=== PATIENT | female | born 1970 | race Caucasian/White ===

== ENCOUNTER 2021-09-29 07:09 | Emergency (ER) | payer OTHER ==
[2021-09-29 08:13] LABS: Absolute Neutrophil Ct (ANC) 16.01 (1.4-6.9); Basophil (Absolute #) 0.02 (0-0.4); Eosinophil % 0.1 % (0.00-5.0); Eosinophil (Absolute #) 0.01 (0-0.5); Hematocrit 46.7 % (35-47); Hemoglobin 15.6 gm/dl (12.0-16.0); Lymphocyte (Absolute #) 2.02 (1.0-4.6); Lymphocytes % 10.6 % (24.0-44.0); Mean Cell Volume 90.7 fl (78-100); Mean Corpuscular Hemoglobin 30.3 pg (26-32); Mean Corpuscular Hgb Concent. 33.4 g/dl (32-36); Monocyte (Absolute #) 1.01 (0.0-1.3); Monocytes % 5.3 % (0.0-12.0); Neutrophil % 83.9 % (36.0-66.0); Platelet Count 239 K/mm3 (150-450); Red Blood Count 5.15 M/mm3 (4.1-5.4); Red Cell Distribution Width 14.8 % (11.5-14.0); White Blood Count 19.1 K/mm3 (4.0-10.5)
--- NOTE | 2021-09-29 08:14 | ERPHSYRPT ---
- History of Present Illness Time Seen by Provider: 09/29/21 08:04 Source: patient Exam Limitations: no limitations Patient Subjective Stated Complaint: Pt c/o of upper right chest pain and feels like something is in her throat for the past month after choking on an apple, pt thinks the right chest pain is her gall bladder and she has had a US and it was clear Triage Nursing Assessment: Pt brought to the ER by her , hypertensive, rates pain as 7/10, right chest pain, throat pain, reports having lots of belching and yellow stools and thinks that it's her gall bladder, previous US was clear, throat pain she states is from an apple she choked on a month ago and feels that it is still there, pt had lots of anxiety prior to coming to room but appears to be fine now that she is in the room and is comfortable, pulses normal, skin n/w/d, tender to the right upper chest/epigastric area with palpatation, tender to palpatation to the throat Physician History: 50 years old female with history of anxiety presented with multiple nonspecific symptoms going on for months. Patient reports she is off and on epigastric and right upper quadrant pain with some loose stool at times for the last 2 to 3 months and had ultrasound done outpatient which was negative. Her symptoms are not going away and she was recommended to have HIDA scan. Patient also reports having difficulty swallowing and feeling a small lump in the throat the last 2 months off and on especially at nighttime with increased coughing and feels as if something is stuck in there. Patient reports this started after she got choked on a piece of apple. She is having night sweats and her white count stays high. No fever or chills reported. Denies any palpitations or shortness of breath. Timing/Duration: week(s), intermittent, gradual onset Severity: moderate Associated Symptoms: nausea, abdominal pain, heartburn, chest pain, No vomiting, No shortness of breath Allergies/Adverse Reactions: Sulfa (Sulfonamide Antibiotics) Allergy (Verified 09/29/21 07:48) Home Medications: Atorvastatin Calcium 20 mg PO DAILY 09/29/21 [History] Lisinopril 10 mg [Zestril 10 MG] 10 mg PO DAILY 09/29/21 [History] Travel Risk - International Travel Have you traveled outside of the country in past 3 weeks: No - Coronavirus Screening Are you exhibiting any of the following symptoms?: No Close contact with a COVID-19 positive Pt in past 14-21 Days: No - Vaccine Status Have you recieved a Covid-19 vaccination: No - Review of Systems Constitutional: Fatigue Eyes: No Symptoms Ears, Nose, & Throat: No Symptoms Respiratory: Cough Cardiac: Chest Pain Abdominal/Gastrointestinal: Abdominal Pain, Nausea, Diarrhea Genitourinary Symptoms: No Symptoms Musculoskeletal: No Symptoms Skin: No Symptoms Neurological: No Symptoms Psychological: Anxiety Endocrine: No Symptoms Hematologic/Lymphatic: No Symptoms Immunological/Allergic: No Symptoms - Past Medical History Pertinent Past Medical History: Yes Cardiac History: High Cholesterol, Hypertension - Past Surgical History Past Surgical History: Yes Female Surgical History: Hysterectomy Other Surgical History: cyst on ovary - Social History Smoking Status: Current every day smoker Exposure to second hand smoke: Yes Patient Lives Alone: No - Female History Hx Now: No - Nursing Vital Signs Nursing Vital Signs: Initial Vital Signs Temperature 97.3 F 09/29/21 07:20 Pulse Rate 103 H 09/29/21 07:20 Blood Pressure 163/94 09/29/21 07:20 O2 Sat by Pulse Oximetry 98 09/29/21 07:20 Pain Scale Pain Intensity 4 - Physical Exam General Appearance: no apparent distress, alert, anxiety Eye Exam: PERRL/EOMI, eyes nml inspection Ears, Nose, Throat Exam: moist mucous membranes, TM abnormal (R), pharyngeal erythema Neck Exam: normal inspection, supple, full range of motion, lymphadenopathy Respiratory Exam: normal breath sounds, lungs clear Cardiovascular Exam: regular rate/rhythm, normal heart sounds Gastrointestinal/Abdomen Exam: soft, normal bowel sounds, tenderness (Right upper quadrant) Back Exam: normal inspection, normal range of motion Extremity Exam: normal inspection, normal range of motion Neurologic Exam: alert, oriented x 3, cooperative, microbiology lab manager II-XII nml as tested Skin Exam: normal color SpO2 Interpretation: normal SpO2: 98 O2 Delivery: Room Air Ordered Tests: Active Orders 24 hr Category Date Time Status ABDOMEN AND PELVIS W CONTRAST [CT] Stat Exams 09/29/21 07:53 Completed CHEST WITH CONTRAST [CT] Stat Exams 09/29/21 07:57 Completed NECK WITH CONTRAST [CT] Stat Exams 09/29/21 07:44 Completed CBC W DIFF Stat Lab 09/29/21 08:00 Completed CMP Stat Lab 09/29/21 08:00 Completed CULTURE,URINE Stat Lab 09/29/21 08:32 Received LIPASE Stat Lab 09/29/21 08:00 Completed TROPONIN Q3H Lab 09/29/21 08:00 Completed TROPONIN Q3H Lab 09/29/21 11:15 Ordered TROPONIN Q3H Lab 09/29/21 14:15 Ordered TROPONIN Q3H Lab 09/29/21 17:15 Ordered TSH [TSH, 3RD Generation] Stat Lab 09/29/21 10:09 Ordered UA W/RFX UR CULTURE Stat Lab 09/29/21 08:32 Completed Medication Summary Discontinued Medications Generic Name Dose Route Start Last Admin Trade Name Freq PRN Reason Stop Dose Admin Sodium Chloride Confirm 09/29/21 08:32 Sodium Chloride 0.9% 1000 Ml Administered 09/29/21 08:33 Dose 1,000 mls @ ud .ROUTE .STK-MED ONE Sodium Chloride 1,000 mls @ 999 mls/hr 09/29/21 08:39 09/29/21 10:01 Sodium Chloride 0.9% 1000 Ml IV 09/29/21 09:39 Infused .Q1H1M STA Infusion Lab/Rad Data: Laboratory Result Diagrams 09/29/21 08:00 09/29/21 08:00 Laboratory Results 09/29/21 09/29/21 09/29/21 Range/Units 08:32 08:00 08:00 WBC (4.0-10.5) K/mm3 RBC (4.1-5.4) M/mm3 Hgb (12.0-16.0) gm/dl Hct (35-47) % MCV (78-100) fl MCH (26-32) pg MCHC (32-36) g/dl RDW (11.5-14.0) % Plt Count (150-450) K/mm3 MPV (7.5-11.0) fl Gran % (36.0-66.0) % Eos # (Auto) (0-0.5) Absolute Lymphs (auto) (1.0-4.6) Absolute Monos (auto) (0.0-1.3) Lymphocytes % (24.0-44.0) % Monocytes % (0.0-12.0) % Eosinophils % (0.00-5.0) % Basophils % (0.0-0.4) % Absolute Granulocytes (1.4-6.9) Basophils # (0-0.4) Sodium (137-145) mmol/L Potassium (3.5-5.1) mmol/L Chloride (98-107) mmol/L Carbon Dioxide (22-30) mmol/L Anion Gap (5-15) MEQ/L BUN (7-17) mg/dL Creatinine (0.52-1.04) mg/dL Estimated GFR ML/MIN Glucose (74-106) mg/dL Calcium (8.4-10.2) mg/dL Total Bilirubin (0.2-1.3) mg/dL AST (14-36) U/L ALT (0-35) U/L Alkaline Phosphatase (38-126) U/L Troponin I < 0.012 (0.000-0.034) ng/mL Serum Total Protein (6.3-8.2) g/dL Albumin (3.5-5.0) g/dL Lipase (23-300) U/L Free T4 1.30 (0.76-1.46) ng/dL Urine Color WING (YELLOW) Urine Appearance SLIGHTLY CLOUDY (CLEAR) Urine pH 6.0 (5-6) Ur Specific Rindge 1.021 (1.005-1.025) Urine Protein 100 (Negative) Urine Ketones TRACE (NEGATIVE) Urine Blood NEGATIVE (0-5) Sebastien/ul Urine Nitrite NEGATIVE (NEGATIVE) Urine Bilirubin NEGATIVE (NEGATIVE) Urine Urobilinogen 2 (0-1) mg/dL Ur Leukocyte Esterase NEGATIVE (NEGATIVE) Urine WBC (Auto) 3-5 (0-5) /HPF Urine RBC (Auto) 6-10 (0-2) /HPF U Hyaline Cast (Auto) 6-10 (0-2) /LPF U Epithel Cells (Auto) RARE (FEW) /HPF Urine Bacteria (Auto) NONE (NEGATIVE) /HPF Calcium Oxalate Crystal 6-10 (NEGATIVE) /HPF Urine Mucus (Auto) SLIGHT (NEGATIVE) /HPF Urine Culture Reflexed YES (NO) Urine Glucose NEGATIVE (NEGATIVE) mg/dL Group A Strep Antibody (NEGATIVE) 09/29/21 09/29/21 09/29/21 Range/Units 08:00 08:00 08:00 WBC 19.1 H (4.0-10.5) K/mm3 RBC 5.15 (4.1-5.4) M/mm3 Hgb 15.6 (12.0-16.0) gm/dl Hct 46.7 (35-47) % MCV 90.7 (78-100) fl MCH 30.3 (26-32) pg MCHC 33.4 (32-36) g/dl RDW 14.8 H (11.5-14.0) % Plt Count 239 (150-450) K/mm3 MPV 11.0 (7.5-11.0) fl Gran % 83.9 H (36.0-66.0) % Eos # (Auto) 0.01 (0-0.5) Absolute Lymphs (auto) 2.02 (1.0-4.6) Absolute Monos (auto) 1.01 (0.0-1.3) Lymphocytes % 10.6 L (24.0-44.0) % Monocytes % 5.3 (0.0-12.0) % Eosinophils % 0.1 (0.00-5.0) % Basophils % 0.1 (0.0-0.4) % Absolute Granulocytes 16.01 H (1.4-6.9) Basophils # 0.02 (0-0.4) Sodium 139 (137-145) mmol/L Potassium 3.9 (3.5-5.1) mmol/L Chloride 103 (98-107) mmol/L Carbon Dioxide 24 (22-30) mmol/L Anion Gap 15.8 H (5-15) MEQ/L BUN 6 L (7-17) mg/dL Creatinine 0.58 (0.52-1.04) mg/dL Estimated GFR > 60.0 ML/MIN Glucose 135 H (74-106) mg/dL Calcium 9.5 (8.4-10.2) mg/dL Total Bilirubin 0.50 (0.2-1.3) mg/dL AST 18 (14-36) U/L ALT 19 (0-35) U/L Alkaline Phosphatase 108 (38-126) U/L Troponin I (0.000-0.034) ng/mL Serum Total Protein 7.0 (6.3-8.2) g/dL Albumin 4.2 (3.5-5.0) g/dL Lipase 51 (23-300) U/L Free T4 (0.76-1.46) ng/dL Urine Color (YELLOW) Urine Appearance (CLEAR) Urine pH (5-6) Ur Specific Rindge (1.005-1.025) Urine Protein (Negative) Urine Ketones (NEGATIVE) Urine Blood (0-5) Sebastien/ul Urine Nitrite (NEGATIVE) Urine Bilirubin (NEGATIVE) Urine Urobilinogen (0-1) mg/dL Ur Leukocyte Esterase (NEGATIVE) Urine WBC (Auto) (0-5) /HPF Urine RBC (Auto) (0-2) /HPF U Hyaline Cast (Auto) (0-2) /LPF U Epithel Cells (Auto) (FEW) /HPF Urine Bacteria (Auto) (NEGATIVE) /HPF Calcium Oxalate Crystal (NEGATIVE) /HPF Urine Mucus (Auto) (NEGATIVE) /HPF Urine Culture Reflexed (NO) Urine Glucose (NEGATIVE) mg/dL Group A Strep Antibody NOT DETECTED (NEGATIVE) - Progress Progress: unchanged, re-examined Progress Note: 09/29/21 10:45 Blood work-up was done including CT neck, chest, abdomen pelvis which are grossly negative for any acute findings. She has elevated white count which according to patient has been there before. She is given fluids, on reevaluation feeling better. She is not in any pain currently. I would refer her to outpatient hematology for elevated white count as no obvious source of infection is there. Also she has right upper quadrant pain and recommended to follow-up with general surgery for HIDA scan. Discussed signs symptoms of worsening needing return to ER which she seems understanding. Stable for discharge. Counseled pt/family regarding: lab results, diagnosis, need for follow-up, rad results - Departure Departure Disposition: Home Clinical Impression: RUQ pain, Neck discomfort Leukocytosis Qualifiers: Leukocytosis type: unspecified Qualified Code(s): D72.829 - Elevated white blood cell count, unspecified Condition: Stable Critical Care Time: No Referrals: POONAM SEN [Primary Care Provider] - Follow up/PCP as directed (Call tomorrow for reevaluation) BRANDON POLANCO MD [ACTIVE STAFF] - Follow up/PCP as directed (Call for appointment for reevaluation of right upper quadrant pain) NORA PUGA [COURTESY STAFF] - Follow up/PCP as directed (Call for appointment for further evaluation of elevated white count) Instructions: Acute Abdomen (Belly Pain), Adult (DC) Additional Instructions: Follow-up with your primary care, general surgery and hematology/oncology for reevaluation. Take Tylenol as needed. Return to ER for any worsening.
[2021-09-29 08:30] LABS: ALBUMIN 4.2 g/dL (3.5-5.0); ALKALINE PHOSPHATASE 108 U/L (38-126); ANION GAP 15.8 MEQ/L (5-15); BLOOD UREA NITROGEN 6 mg/dL (7-17); CHLORIDE 103 mmol/L (98-107); Calcium 9.5 mg/dL (8.4-10.2); Carbon Dioxide 24 mmol/L (22-30); Creatinine 1 0.58 mg/dL (0.52-1.04); EST GLOMERULAR FILTRATION RATE > 60.0 ML/MIN; Glucose 135 mg/dL (74-106); LIPASE 51 U/L (23-300); Potassium 3.9 mmol/L (3.5-5.1); SGOT/AST 18 U/L (14-36); SGPT/ALT 19 U/L (0-35); SODIUM 139 mmol/L (137-145)
[2021-09-29] MEDS ORDERED: Sodium Chloride 0.9% 1000 ML 1,000 ML ONE (08:32)
[2021-09-29 08:34] VITALS: PULSE 72
[2021-09-29 08:39] LABS: Appearance SLIGHTLY CLOUDY (CLEAR); Bilirubin NEGATIVE (NEGATIVE); Blood NEGATIVE Ery/ul (0-5); Epithelial Cells RARE /HPF (FEW); Glucose NEGATIVE (NEGATIVE); Ketones TRACE (NEGATIVE); Leukocyte Esterase NEGATIVE (NEGATIVE); Mucus SLIGHT /HPF (NEGATIVE); Nitrite NEGATIVE (NEGATIVE); Protein,Urine Dip 100 (Negative); Specific Gravity 1.021 (1.005-1.025); Urobilinogen 2 mg/dL (0-1)
[2021-09-29] MEDS ORDERED: Sodium Chloride 0.9% 1000 ML 1,000 ML IV STA (08:39)
--- NOTE | 2021-09-29 09:51 | XRAY ---
Indication: Foreign-body sensation after eating apple one month ago. Multiple contiguous axial images obtained through the neck using 50 cc Isovue 370 contrast. Sagittal and coronal reformatted images obtained. Comparison: None Supra and infraglottic airway are widely patent. Normal epiglottis. Major arteries and veins are normal in course and caliber. Parotid and submandibular glands are bilaterally symmetric. Thyroid gland enhances homogeneously. No pathologic cervical/supraclavicular lymphadenopathy. Visualized osseous structures and cervical spine intact. Incidental bilateral dental amalgams produces beam artifact. Base of the brain unremarkable. CT chest reported separately. Impression: Normal CT neck with contrast exam.
--- NOTE | 2021-09-29 09:54 | XRAY ---
Indication: Right chest/right upper quadrant abdominal pain. Multiple contiguous axial images obtained through the chest using 80 cc Isovue 370 contrast. Comparison: None CT neck and CT abdomen/pelvis reported separately. Lungs demonstrates minimal dependent atelectasis and 2 subcentimeter left upper lobe peripheral calcified granulomas. Medial right lower lobe demonstrates 5 mm well-circumscribed noncalcified nodule, possibly granulomatous as well. No suspicious pulmonary mass, infiltrate, effusion, or pneumothorax. Heart is not enlarged. Aorta is normal in course and caliber. Small right hilar calcified nodes. No pathologic mediastinal/hilar lymphadenopathy. Bony thorax intact with mild degenerative changes throughout the spine. Impression: 1. Calcified/noncalcified micronodules favored to be granulomatous. 2. Remaining CT chest with contrast exam is negative.
[2021-09-29 09:55] VITALS: BP 154/88
--- NOTE | 2021-09-29 09:56 | XRAY ---
Indication: Right chest/right upper quadrant abdominal pain. Multiple contiguous axial images obtained through the abdomen and pelvis using 80 cc Isovue 370 contrast. Comparison: None CT chest reported separately. Noncontrasted stomach and bowel loops appear nonobstructed with normal appendix. Previous hysterectomy. No free fluid/air. Remaining liver, gallbladder, pancreas, spleen, adrenal glands, kidneys, ureters, and bladder are unremarkable. Mild scattered aortoiliac calcifications are noted AAA or pathologic retroperitoneal lymphadenopathy. Osseous structures intact with mild degenerative changes throughout the thoracolumbar spine. No ventral or inguinal hernias. Impression: 1. Scattered arteriosclerotic disease and multilevel degenerative spondylosis. 2. Remaining CT abdomen/pelvis with contrast exam is negative.
[2021-09-29 10:51] VITALS: O2SAT 98
== END 2021-09-29 11:17 | disposition home or self-care (01) ==
LOC: ED 07:09
DX: R10.11 Right upper quadrant pain (principal); M54.2 Cervicalgia; D72.829 Elevated white blood cell count, unspecified; R10.13 Epigastric pain; F41.9 Anxiety disorder, unspecified; R13.10 Dysphagia, unspecified; R05.9 Cough, unspecified; R11.0 Nausea; R07.9 Chest pain, unspecified; E78.5 Hyperlipidemia, unspecified; I10 Essential (primary) hypertension; Z72.0 Tobacco use; Z79.899 Other long term (current) drug therapy
CPT/HCPCS: 36415; 70491; 71260; 74177; 80053; 81001; 83690; 84439; 84443; 84484; 85025; 87086; 87651; 96360; 99285